=== PATIENT | male | born 1965 | race Hispanic/Latino ===

== ENCOUNTER 2019-03-18 12:53 | Observation (INO) ==
[2019-03-18] MEDS ORDERED: ASPIRIN PO ONE (13:16)
[2019-03-18] MEDS ORDERED: NS 1,000 ML IV ONE (13:23)
--- NOTE | 2019-03-18 13:26 | PROVIDER DOCUMENTATION ---
HPI-Neurological Disorder - General Chief Complaint: Chest Pain Stated Complaint: ELEVATED BP Time Seen by Provider: 03/18/19 13:19 Source: patient Allergies/Adverse Reactions: Patient Allergies Allergy/AdvReac Type Severity Reaction Status Date / Time No Known Allergies Allergy Verified 07/26/18 09:08 Home Medications: Home Medication List Medication Instructions Recorded Confirmed Last Taken Type ATORVAstatin [Lipitor] 20 mg PO DAILY 03/18/19 03/18/19 03/18/19 History Aspirin [Aspirin EC] 81 mg PO DAILY 03/18/19 03/18/19 03/18/19 History Clonidine HCl 0.2 mg PO DAILY 03/18/19 03/18/19 03/18/19 History Hydrochlorothiazide 25 g PO DIRECTED 03/18/19 03/18/19 03/18/19 History Losartan Potassium 100 mg PO DAILY 03/18/19 03/18/19 03/18/19 History Metformin HCl 850 mg PO DAILY 03/18/19 03/18/19 03/18/19 History Sitagliptin Phosphate [Januvia] 100 mg PO DAILY 03/18/19 03/18/19 03/18/19 History - History of Present Illness-Neuro Nature of Presenting Problem: Patient is visiting from [place], history of HTN and CVA with left hemiparesis, notes RIGHT upper and lower extremity weakness, difficulty raising right hand, difficulty walking x 2 days. States right side is also numb/tingling and do esn't feel right. This morning noted left chest pain, described as moderate, 4- 5/10, pressure/tightness, radiating to right neck. Has had similar symptoms in the past with stroke, but it affected left side. He has mild SOB and nausea, but no sweating/vomiting. Headache Location: reports: temporal (left) Severity: reports: mild Onset/Duration: reports: 2 days ago Timing: reports: still present, improving (a little better), constant Character of Altered Mental Status: reports: N/A Gait Baseline: walks without assistance Associated Symptoms: reports: headache, chest pain (this morning, left sided), nausea, other (short of breath) Similar Symptoms Previously?: No Recently seen or treated by another doctor?: No (visiting from [place]) Review of Systems - Adult - REVIEW OF SYSTEMS - ADULT Constitutional: reports: no symptoms reported Eyes: reports: no symptoms reported Ears, Nose, Mouth & Throat: reports: no symptoms reported Cardiovascular: reports: chest pain (this am, pressure/tightness, assoc with nausea, SOB and radiates to back of neck) Respiratory: reports: see HPI, shortness of breath (this am) Gastrointestinal: reports: no symptoms reported Genitourinary: reports: no symptoms reported Musculoskeletal: reports: no symptoms reported Integumentary: reports: no symptoms reported Neurological: reports: see HPI Psychiatric: reports: no symptoms reported Endocrine: reports: excessive sweating Hematologic/Lymphatic: reports: no symptoms reported Allergic/Immunologic: reports: no symptoms reported All Other Systems: Reviewed and Negative Past History - Adult - PAST MEDICAL HISTORY-ADULT Review of Records: reports: Old Records Reviewed, Nursing Assessment Review, Medications Reviewed, Social history reviewed & non-contributory. Major Childhood Illnesses: reports: denies history Cardiovascular: reports: HTN, [place] Respiratory: reports: denies history Gastrointestinal: reports: denies history Obstetrical/Gynecological: reports: denies history Genitourinary: reports: denies history Musculoskeletal: reports: denies history Neurological: reports: CVA, stroke deficits (mild left sided weakness) Psychiatric: reports: denies history Endocrine/Immune: reports: denies history Other Conditions: reports: denies history - PRIOR SURGERIES/PROCEDURES Surgical/Procedure History: reports: reviewed, not pertinent, appendectomy - IMMUNIZATION STATUS Childhood Immunizations: See Nurse Assessment Flu Vaccine: See Nurse Assessment - FAMILY HISTORY Family History: reviewed, not pertinent - SOCIAL HISTORY Smoking: non-smoker Substance Use: none/never Alcohol Use Frequency: rarely Living Situation: family (in [place]) Physical Exam- Neurological - Physical Exam-Neuro Initial Vital Signs Reviewed: Yes (hypertensvie, bradycardic) General Appearance: appears well, alert, no apparent distress Eye Exam: bilateral eye: normal inspection, PERRL, EOMI HENMT: normocephalic/atraumatic, moist mucous membranes, normal ENT inspection, TMs normal, pharynx normal Head Injury: no evidence of injury, active bleeding Neck: non-tender, full range of motion, supple, normal inspection Respiratory: chest non-tender, lungs clear, normal breath sounds, no pleuratic chest pain, no respiratory distress, no accessory muscle use Cardiovascular: normal peripheral pulses, regular rate, rhythm, no edema, no gallop, no JVD, no murmur, bradycardia Abdominal Exam: normal bowel sounds, non tender, soft, no organomegaly, no pulsatile mass Lymphatic: no adenopathy Peripheral Pulses: radial (R): 2+, radial (L): 2+, dorsalis-pedis (R): 2+, dorsalis-pedis (L): 2+ Extremity: normal range of motion, non-tender, normal gait, normal inspection, no pedal edema, no calf tenderness, normal capillary refill process treater Exam: normal hearing, normal speech, PERRL Coordination/Gait: normal finger to nose, normal gait, negative Romberg's sign Motor/Sensory: no pronator drift, negative Babinski's sign, sensory deficit (slight decreased sensation right UE/RL), weak motor strength RUE, weak motor strength RLE Neurologic: process treater II-XII nml as tested, grossly normal, motor weakness (right sided), negative romberg's sign. negative: abnormal process treater II-XII, abnormal gait Integumentary: normal color, normal turgor Psych/Mental Status: normal mood/affect, normal thought content, normal thought process, oriented x 3 - Glascow Coma Scale Best Eye Response: (4) open spontaneously Best Verbal Response: (5) oriented Best Motor Response: (6) obeys commands Total Glascow Score: 15 Progress - PLAN OF CARE/RESULTS Progress/Plan/Lab Results: Vital Signs - 8 hr 03/18/19 13:08 03/18/19 16:05 Temperature 98.6 F Pulse Rate 58 L 50 L Respiratory Rate 18 18 Blood Pressure 176/101 159/98 O2 Sat by Pulse Oximetry 97 99 Laboratory Results - last 24 hr 03/18/19 03/18/19 03/18/19 13:24 13:24 13:24 WBC 7.57 RBC 4.79 Hgb 13.3 L Hct 39.6 L MCV 82.7 MCH 27.8 MCHC 33.6 RDW Std Deviation 13.7 Plt Count 194 MPV 12.3 H Immature Gran % (Auto) 0.1 Neut % (Auto) 69.1 Lymph % (Auto) 22.7 Nuckolls % (Auto) 7.5 Eos % (Auto) 0.5 Baso % (Auto) 0.1 Immature Gran # (Auto) 0.01 Neut # (Auto) 5.22 Lymph # (Auto) 1.72 Nuckolls # (Auto) 0.57 Eos # (Auto) 0.04 Baso # (Auto) 0.01 PT INR PTT (Actin FS) Sodium 141 Potassium 3.9 Chloride 103 Carbon Dioxide 29 Anion Gap 10 BUN 11 Creatinine 0.9 Estimated GFR/1.73 m2 > 60 BUN/Creatinine Ratio 12 Glucose 118 H Calculated Osmolality 282 Calcium 8.6 L Total Bilirubin 0.30 AST 12 ALT 11 Alkaline Phosphatase 58 Creatine Kinase 171 Troponin T [id number]-Huxdeoxgbgx Pept 107 Total Protein 7.1 Albumin 4.5 Globulin 3.0 Albumin/Globulin Ratio 2.0 03/18/19 03/18/19 13:24 13:24 WBC RBC Hgb Hct MCV MCH MCHC RDW Std Deviation Plt Count MPV Immature Gran % (Auto) Neut % (Auto) Lymph % (Auto) [place]uckolls % (Auto) Eos % (Auto) Baso % (Auto) Immature Gran # (Auto) Neut # (Auto) Lymph # (Auto) Nuckolls # (Auto) Eos # (Auto) Baso # (Auto) PT 13.2 INR 0.95 PTT (Actin FS) 31.1 Sodium Potassium Chloride Carbon Dioxide Anion Gap BUN Creatinine Estimated GFR/1.73 m2 BUN/Creatinine Ratio Glucose Calculated Osmolality Calcium Total Bilirubin AST ALT Alkaline Phosphatase Creatine Kinase Troponin T < 0.010 Tat-U-Itbuggqoybj Pept Total Protein Albumin Globulin Albumin/Globulin Ratio Orders Category Date Time Status Cardiac Monitoring DIRECTED Care 03/18/19 13:16 Active Nursing- Obtain EKG once Care 03/18/19 15:29 Active Oxygen Therapy- ED Nursing DIRECTED Care 03/18/19 13:16 Active Saline Loc NOW Care 03/18/19 13:16 Active CHEST-2 VIEWS [RAD] Stat Exams 03/18/19 13:[address] HEAD W/O CONTRAST [CT] Stat Exams 03/18/19 13:23 Completed CBC WITH ELECTRONIC DIFF [HEME] Stat Lab 03/18/19 13:24 Completed CK PROFILE [SP CHEM] Stat Lab 03/18/19 13:24 Completed COMPREHENSIVE METABOLIC PANEL [CHEM] Stat Lab 03/18/19 13:24 Completed PRO B-NATRIURETIC PEPTIDE Stat Lab 03/18/19 13:24 Completed PROTIME WITH INR [COAG] Stat Lab 03/18/19 13:24 Completed PTT [COAG] Stat Lab 03/18/19 13:24 Completed TROPONIN T Stat Lab 03/18/19 13:24 Completed TROPONIN T Stat Lab 03/18/19 15:47 Received 0.9% Sodium Chloride Inj [Ns] 1,000 ml Med 03/18/19 13:23 Discontinued IV 999 mls/hr Aspirin Med 03/18/19 13:16 Discontinued 325 mg PO NOW ONE CP/SOB/Palp >45 yrs of Age Stat Oth 03/18/19 13:16 Ordered EKG [EKG] Stat Ther 03/18/19 13:16 Draft EKG [EKG] Stat Ther 03/18/19 15:29 Draft Result Diagrams: 03/18/19 13:24 03/18/19 13:24 - REASSESSMENT Reassessment #1 Time Reassessed: 16:13 Status: improving (given ASA, NTP, IVF) - CONSULTS/PCP/HOSPITALIST Notification #1 *Consult/PCP/Hospitalist*: [place] Time Discussed: 16:14 Consult Disposition: Will see in ED, Admit Departure - Departure Date of Disposition Decision: 03/18/19 Time of Disposition Decision: 16:14 DIAGNOSIS: TIA (transient ischemic attack), Chest pain, moderate coronary artery risk Disposition: ADMITTED INPATIENT 09 Certified Medical Emergency: Emergent Condition: Stable Referrals and Follow-Ups: None,PCP [Primary Care Provider] - - Critical Care Note This patient required my direct & personal management of CC.: No Attestation - Physician/ MARISA Attestation Patient care was provided by Advanced Practice Provider:: No The physician spent face to face time with patient:: Yes Advanced Practice Provider documentation review:: Supervising physician onsite and consulted in the evaluation and care of this patient. The physician did have a face to face encounter with the patient. - NIH Stroke Scale NIH Type: Initial Evaluation Level of Consciousness: 0-Alert LOC Questions (ask month and age): 0-Answers Both Correctly LOC Commands (ask to open & close eyes;make a fist, let go): 0-Obeys Both Correctly Best Gaze (horizontal eye movement): 0-Normal Visual (use finger movement, counting or visual threat): 0-No Visual Loss Facial Palsy (show teeth or raise eyebrows & close eyes tght: 0-Symmetrical Movement Motor Function-left arm: 0-Normal Motor Function-right arm: 1-Drift Motor Function-left le-Normal Motor Function-right le-Drift Limb Ataxia(qzqsyp-ngou-cspyse, or heel to soto): 0-No Ataxia Sensory(pin prick to face,arms,trunk,legs-compare side/side): 1-Mild to Moderate Decrease in Sensation Best Language(name item/read sentence.Ex-Down to Earth): 0-No Aphasia Dysarthria(Pt read words or say words Ex.Mama,Tip-Top,Thanks: 0-Normal Articulation Extinction and Inattention: 0-Normal NIH Total Score: 2 Modified Sanju[place]ita Score Criteria: 1-no significant disability despite symptoms Stroke tPA Guidelines - Inclusion Criteria for IV tPA 18 years old or older: Yes Ischemic stroke with measurable deficit: Yes Onset <3 hours ago *OR* 3-4.5 hours ago: No - Exclusion Criteria for IV tPA Evidence of intracranial hemorrhage on CT: No Presentation suggest SAH: No CT reveals defined area of hypodensity: No Evidence of AVM, neoplasm, aneurysm: No Seizure at stroke onset: No Active internal bleeding or acute trauma: No Platelet Count Less Than 100,000: No Heparin Within Last 48 HRS (PTT >Lab normal limits): No INR > 1.7 (warfarin use): No Use IIB/IIIA inhibitors within 24 hours: No Serious Head Trauma Within Last 3 Months: No Arterial Puncture Within Last 7 Days: No Lumbar Puncture Within Last 7 Days: No Repeated systolic Blood Pressure >185 or Diastolic >110: No - Additional Exclusion Criteria for IV tPA Currently on Coumadin: No Patient older than 80: No Prior stroke and diabetes: No Baseline NIHSS score > 25: No - Relative Contraindications to IV tPA CT reveals extensive area of infarct (>1/3 MCA territory): No Minor or rapidly improving stroke symptoms: No Major Surgery or Serious Trauma In Previous 14 Days: No AMI within 3 months: No Gastrointestinal or Urinary Tract hemorrhage in Past 21 Days: No Post - AMI pericarditis: No Blood Glucose Less Than 50 mg/dl or Greater Than 400 mg/dl: No - Consultation tPA risks/benefits explained to:: patient Candidate for:: NOT A CANDIDATE (symptoms began 2-3 days ago, seem a little improved) - HEART Score HEART Score: History: Moderately Suspicious HEART Score: ECG: Non-Specific Repolarization Disturbance/LBBB/PM HEART Score: Age: 45-65 Years HEART Score: Risk Factors for Atherosclerotic Disease: > or = 3 Risk Factors or History of Atherosclerotic Disease HEART Score: Troponin: < or = Normal Limit Total HEART Score:: 5
--- NOTE | 2019-03-18 13:29 | EKG Report ---
Test Performed on : 03/18/2019 1:17:59 PM Test Reason : CHEST PAIN Blood Pressure : / mmHG Vent. Rate : 051 BPM Atrial Rate : 051 BPM P-R Int : 178 ms QRS Dur : 100 ms QT Int : 434 ms P-R-T Axes : 000 065 052 degrees QTc Int : 400 ms Sinus bradycardia. Otherwise normal ECG When compared with ECG of 26-JUL-2018 09:15, Vent. rate has decreased BY 34 BPM Questionable change in QRS axis QT has shortened Unconfirmed Result
--- NOTE | 2019-03-18 13:39 | ED EKG INTERP ---
This chart was entered by Annbaella Zhang Scribe, acting as scribe for Kevin Chowdhury MD. EKG Interpretation - EKG Time of EKG reading by physician:: 13:17 EKG Read and Signed by:: Kevin Chowdhury EKG Interpretation (*Must complete 3 of following elements*): Abnormal Rate: 51 Rhythm: sinus bradycardia Friend[place]: normal AR Interval: normal Comments: otherwise normal ECG Attestation - Physician/ MARISA Attestation The physician spent face to face time with patient:: Yes Advanced Practice Provider documentation review:: Supervising physician onsite and consulted in the evaluation and care of this patient. The physician did have a face to face encounter with the patient. This chart was documented by the indicated scribe, (Annabella Zhang Scribe) and accurately reflects the services I performed and decisions made by Trenton nicolas Kent A., MD, as attested by the provider's signature.
--- NOTE | 2019-03-18 13:39 | Diag Imaging Result Doc PS360 ---
CHEST-2 VIEWS - 03/18/2019 INDICATION: CHEST PAIN COMPARISON: 07/26/2018 FINDINGS: The lungs are normally expanded and clear. Heart size and mediastinal contours are normal. No pneumothorax or pleural effusion. IMPRESSION: Negative exam. Electronically signed by Gama Whelan 03/18/2019 1:37 PM
[2019-03-18 13:42] LABS: BASO# 0.01 X1000 (0.0-0.2); BASO% 0.1 % (0.0-0.8); EOS# 0.04 X1000 (0.0-0.7); EOS% 0.5 % (0.0-10.0); HEMATOCRIT 39.6 % (42.0-52.0); HEMOGLOBIN 13.3 g/dL (14.0-18.0); IMM GRAN# 0.01 X1000 (0.0-0.04); IMM GRAN% 0.1 % (0.0-0.5); LYMPH# 1.72 X1000 (1.2-3.4); LYMPH% 22.7 % (20.5-51.1); MCH 27.8 PG (27-31); MCHC 33.6 g/dL (33-37); MCV 82.7 FL (81-99); MONO# 0.57 X1000 (0.11-0.59); MONO% 7.5 % (1.7-9.3); MPV 12.3 FL (7.4-10.4); NEUT# 5.22 X1000 (1.4-6.5); NEUT% 69.1 % (42.2-75.2); PLT 194 X1000 (130-400); RBC 4.79 XMIL (4.7-6.1); RDW 13.7 % (11.5-14.5); WBC 7.57 X1000 (4.8-10.8)
[2019-03-18 13:55] LABS: INR 0.95; PROTIME 13.2 Seconds (11.0-16.0)
[2019-03-18 13:56] LABS: PTT 31.1 Seconds (22.3-41.8)
[2019-03-18 14:07] LABS: AGAP 10; ALBUMIN 4.5 g/dL (3.5-5.0); ALKALINE PHOSPHATASE 58 U/L (32-122); BUN 11 mg/dL (8-22); CALCIUM 8.6 mg/dL (8.8-10.2); CHLORIDE 103 mmol/L (98-107); CK PROFILE 171 U/L (24-204); COSMO 282; CREATININE 0.9 mg/dL (0.7-1.2); ESTIMATED GFR > 60; GLUCOSE 118 mg/dL (70-104); GOT 12 U/L (10-34); GPT 11 U/L (10-44); POTASSIUM 3.9 mmol/L (3.5-5.1); SODIUM 141 mmol/L (136-145); TCO2 29 mmol/L (25-35); TOTAL PROTEIN 7.1 g/dL (6.3-8.3)
--- NOTE | 2019-03-18 14:26 | Diag Imaging Result Doc PS360 ---
CT HEAD W/O CONTRAST - 03/18/2019 INDICATION: right sided weakness, r/o CVA COMPARISON: None FINDINGS: The ventricles and sulci are normal in size and contour. No intracranial mass or hemorrhage. The skull is intact. The sinuses mastoids and middle ears are clear. IMPRESSION: Negative exam. This exam was performed using automated exposure control, adjustment of mA or kV according to patient size, and/or use of iterative reconstruction technique Electronically signed by Gama Whelan 03/18/2019 2:23 PM
--- NOTE | 2019-03-18 15:57 | ED EKG INTERP ---
This chart was entered by Annabella Zhang Scribe, acting as scribe for Kevin Chowdhury MD. EKG Interpretation - EKG Time of EKG reading by physician:: 15:50 EKG Read and Signed by:: Kevin Chowdhury EKG Interpretation (*Must complete 3 of following elements*): Abnormal Rate: 45 Rhythm: sinus bradycardia [place]: normal NH Interval: normal Comments: otherwise normal ECG Attestation - Physician/ MARISA Attestation Patient care was provided by Advanced Practice Provider:: No The physician spent face to face time with patient:: Yes Advanced Practice Provider documentation review:: Supervising physician onsite and consulted in the evaluation and care of this patient. The physician did have a face to face encounter with the patient. This chart was documented by the indicated scribe, (Annabella Zhang Scribe) and accurately reflects the services I performed and decisions made by Trenton nicolas Kent A., MD, as attested by the provider's signature.
--- NOTE | 2019-03-18 16:03 | EKG Report ---
Test Performed on : 03/18/2019 3:50:25 PM Test Reason : repeat for chest pain Blood Pressure : / mmHG Vent. Rate : 045 BPM Atrial Rate : 045 BPM P-R Int : 178 ms QRS Dur : 098 ms QT Int : 442 ms P-R-T Axes : -12 068 047 degrees QTc Int : 382 ms Sinus bradycardia. Otherwise normal ECG When compared with ECG of 18-MAR-2019 13:17, (Unconfirmed) No significant change was found Unconfirmed Result
[2019-03-18] MEDS ORDERED: NITROGLYCERIN TOP ONE (16:15)
[2019-03-18] MEDS ORDERED: APRESOLINE IV PRN (18:08)
[2019-03-18] MEDS ORDERED: ZOFRAN IV PRN (18:08)
[2019-03-18] MEDS: TYLENOL PO PRN ×2 (18:46→21:05)
[2019-03-18] MEDS: LIPITOR PO SCH (21:04)
--- NOTE | 2019-03-18 21:27 | HISTORY AND PHYSICAL ---
PRIMARY CARE PHYSICIAN: In [place], [place]. CHIEF COMPLAINT: Right upper and lower extremity weakness, difficulty raising his right hand, difficulty walking for the past 2 days with numbness and tingling to right upper and lower extremity. Also noted left chest pain with pressure and tightness that radiated to the left side of his neck with associated nausea and shortness of breath. HISTORY OF PRESENTING ILLNESS: This is a 53-year-old male who presents to [facility] ER with complaints of right upper and lower extremity weakness, difficulty raising his right arm, difficulty walking over the past 2 days with some associated numbness and tingling to the right side. Also states he has had left-sided chest pain with pressure and tightness that radiated to the left neck with associated nausea and shortness of breath. The patient is noted to be here from [place], [place] visiting family. He has had a history of CVA in the past with left hemiparesis. His workup in the emergency room showed a blood pressure of 176/[address] of the head was negative. He is noted to have right-sided weakness to upper and lower extremities states chest pain feels like pressure and tightness and radiates to the left side of his neck so he will be admitted for further evaluation and treatment. PAST MEDICAL HISTORY: Of hypertension, CVA with left hemiparesis, [place], diabetes type 2. PAST SURGICAL HISTORY: Appendectomy. FAMILY HISTORY: Reviewed and noncontributory. SOCIAL HISTORY: Currently lives with his family in [place]. Denies any tobacco, alcohol or illicit drug use. ALLERGIES: He has no known drug allergies. HOME MEDICATIONS: He takes aspirin 81 mg p.o. daily, atorvastatin 20 mg p.o. daily, clonidine 0.2 mg p.o. daily, hydrochlorothiazide 25 mg p.o. daily, losartan 100 mg p.o. daily and metformin 850 mg p.o. daily. LABORATORY DATA: Showed a white blood cell count of 7.57, hemoglobin 13.3, hematocrit 39.6, platelets 194,000. PT and INR of 13.2 and 0.95. Sodium 141, potassium 3.9, chloride 103, CO2 29, BUN of 11, creatinine 0.9, glucose 118. Cardiac enzyme was negative, proBNP of 107. Chest x-ray showed a negative exam. Head CT was negative. EKG showed sinus bradycardia at 51. REVIEW OF SYSTEMS: He denied any fever, chills, blurred vision, dizziness. He was positive for chest pain, shortness of breath, nausea, right upper and lower extremity weakness with numbness and tingling. Denied any abdominal pain, constipation, diarrhea, burning or hurting with urination. PHYSICAL EXAMINATION: On arrival he had a temperature of 98.6 degrees, pulse 58, respirations 18, blood pressure 176/101, saturating 97% on room air. GENERAL: This is a 53-year-old male who is lying in the bed and answers questions appropriately. HEENT: Normocephalic, atraumatic. Normal ENT inspection. Oropharynx and nares are clear. Pupils are equal, round, reactive to light, accommodation. Extraocular movements are intact. NECK: Normal inspection, normal range of motion. LUNGS: Clear to auscultation bilaterally with equal lung expansion and chest wall movement. HEART: With regular rate and rhythm. No murmurs, rubs, or gallops. ABDOMEN: Soft, nontender, nondistended. Bowel sounds are present x4 quadrants. MUSCULOSKELETAL: He had 5/5 strength to left upper and lower extremities, 3/5 strength to right upper and lower extremities. NEUROLOGICAL: The patient was noted to have weakness to hand grasp on the right, difficulty raising his right leg. Otherwise neurological exam was within normal limits. ASSESSMENT: 1. Transient ischemic attack versus cerebrovascular accident. 2. Chest pain. 3. Hypertension. 4. Diabetes type 2 . PLAN: Will admit him to the medical unit. Place on telemetry. We will do serial cardiac enzymes. Check an echocardiogram, carotid ultrasound. We will do an MRI of the brain with and without contrast in the a.m., place on a diabetic diet. We will check a lipid profile, do serial cardiac enzyme. Continue home medications as previously identified. We are going to allow for some permissive hypertension but we will try to keep his systolic less than 190 and diastolic less than 100. I am going to give him some hydralazine 10 mg IV q.4 hours p.r.n. for those parameters and further orders after seen by attending. Dictated by CAROL Barkley for Malvin Antonio MD cc: CAROL Barkley MD
[2019-03-19 03:01] LABS: BASO# 0.01 X1000 (0.0-0.2); BASO% 0.1 % (0.0-0.8); EOS# 0.07 X1000 (0.0-0.7); EOS% 0.9 % (0.0-10.0); HEMATOCRIT 37.3 % (42.0-52.0); HEMOGLOBIN 12.3 g/dL (14.0-18.0); IMM GRAN# 0.01 X1000 (0.0-0.04); IMM GRAN% 0.1 % (0.0-0.5); LYMPH# 2.61 X1000 (1.2-3.4); LYMPH% 33.2 % (20.5-51.1); MCH 27.3 PG (27-31); MCV 82.9 FL (81-99); MONO# 0.58 X1000 (0.11-0.59); MONO% 7.4 % (1.7-9.3); MPV 12.2 FL (7.4-10.4); NEUT# 4.59 X1000 (1.4-6.5); NEUT% 58.3 % (42.2-75.2); PLT 187 X1000 (130-400); RDW 13.9 % (11.5-14.5); WBC 7.87 X1000 (4.8-10.8)
[2019-03-19 03:26] LABS: AGAP 11; BUN 11 mg/dL (8-22); CALCIUM 8.1 mg/dL (8.8-10.2); CHLORIDE 105 mmol/L (98-107); COSMO 284; CREATININE 0.7 mg/dL (0.7-1.2); ESTIMATED GFR > 60; GLUCOSE 121 mg/dL (70-104); POTASSIUM 3.3 mmol/L (3.5-5.1); SODIUM 142 mmol/L (136-145); TCO2 26 mmol/L (25-35)
--- NOTE | 2019-03-19 06:54 | HISTORY AND PHYSICAL ---
ADDENDUM: Patient presented to the hospital with elevated blood pressures and chest pain as well as left-sided weakness by history from an old CVA. Now he is having right-sided weakness. We are going to admit him and evaluate for CVA and attempt to control his blood pressures a little bit better than he has been doing at home. Further orders as needed. cc: Malvin Antonio MD
[2019-03-19] MEDS ORDERED: GLUCOPHAGE PO SCH (08:00)
[2019-03-19] MEDS ORDERED: JANUVIA PO SCH (09:00)
[2019-03-19] MEDS ORDERED: ASPIRIN EC PO SCH (09:00)
[2019-03-19] MEDS ORDERED: CATAPRES PO SCH (09:00)
[2019-03-19] MEDS ORDERED: COZAAR PO SCH (09:00)
[2019-03-19] MEDS ORDERED: HYDROCHLOROTHIAZIDE PO SCH (09:00)
--- NOTE | 2019-03-19 14:31 | Extremity Venous Study ---
EXAM: Carotid Ultrasound - 03/19/2019 HISTORY: TIA vs CVA TECHNIQUE: Carotid flow studies COMPARISON: None. FINDINGS: There is no substantial atherosclerotic plaquing identified in the right carotid system. Maximum systolic velocity right internal carotid is 102 cm/s, and maximum diastolic velocity is 34 cm/s. The right internal to common carotid systolic velocity ratio is 1.28. The flow velocities and ratio are consistent with 0-39% stenosis at the right internal carotid. The right vertebral demonstrates antegrade flow. There is no substantial atherosclerotic plaque identified in the left carotid system. Maximum systolic velocity in the left internal carotid is 85 cm/s, maximum diastolic velocity is 37 cm/s. The left internal to common carotid systolic velocity ratio is 0.93. The flow velocities and ratio are consistent with 0-39% stenosis at the left internal carotid. The left vertebral demonstrates antegrade flow. IMPRESSION: 0-39% stenosis at right internal carotid. 0-39% stenosis at left internal carotid. Electronically signed by Kaushik Albarado 03/19/2019 2:29 PM
[2019-03-19] MEDS ORDERED: ATIVAN IV ONE (15:13)
[2019-03-19] MEDS ORDERED: ATIVAN ONE (15:19)
--- NOTE | 2019-03-19 16:47 | ECHO REPORT ---
ORDER DATE: 03/19/2019 INTERPRETING PHYSICIAN: Dr. Ricardo Gutierrez ECHOCARDIOGRAPHIC MEASUREMENTS: 1. Interventricular septum: 0.9 cm. 2. Posterior wall: 1.1 cm. 3. Diastolic diameter: 4.4 cm. 4. Left atrium: 3.7 cm. 5. Aorta: 2.3 cm. SUMMARY OF THE 2-DIMENSIONAL IMAGIN. Aortic valve leaflets are trileaflet. 2. Pulmonic valve was normal. 3. Mitral valve was normal. 4. Tricuspid valve was normal. 5. There is mild mitral regurgitation. 6. Mild tricuspid regurgitation. 7. Peak velocity across the tricuspid valve was less than 2 meters per second. 8. Peak velocity across the aortic valve less than 2 meters per second. 9. By Doppler studies, there is no aortic stenosis or regurgitation. 10. Normal left ventricular cavity size. 11. Estimated ejection fraction of 65%. 12. There is no pericardial effusion or obvious intracardiac mass or thrombus seen. cc: MD Aaliyah Bhatia CRNP
--- NOTE | 2019-03-19 17:00 | Diag Imaging Result Doc PS360 ---
EXAM: MRI BRAIN W/WO CONTRAST - 03/19/2019 HISTORY: tia TECHNIQUE: MRI brain without and with contrast. Images are obtained prior to and following gadolinium administration. COMPARISON: 03/18/2019 CT head without contrast FINDINGS: There is no evidence of intracranial hemorrhage, mass effect, midline shift, or hydrocephalus. There are no substantial signal abnormalities identified. The diffusion weighted images show no areas of restricted diffusion (no evidence of acute infarct). There is no abnormal enhancement identified. There is mild cerebellar tonsillar ectopia noted consistent with range of normal variation. IMPRESSION: No visible significant intracranial abnormality. No evidence of acute infarct. Electronically signed by Kaushik Albarado 03/19/2019 4:58 PM
[2019-03-19] MEDS ORDERED: KLOR-CON PO ONE (17:40)
[2019-03-19] MEDS ORDERED: TORADOL IV ONE (19:25)
[2019-03-19] MEDS ORDERED: SOLU-MEDROL IV ONE (19:26)
[2019-03-19 20:05] VITALS: BP 220/105
--- NOTE | 2019-03-19 20:07 | Diag Imaging Result Doc PS360 ---
EXAM: SHOULDER-RIGHT - 03/19/2019 HISTORY: right arm TECHNIQUE: Right shoulder two views COMPARISON: None. FINDINGS: There are apparent degenerative changes. There is a thin sclerotic line over the humeral neck which is likely long-standing. There is no fracture or dislocation identified. There are no erosive or destructive changes identified. IMPRESSION: Apparent degenerative changes. No other discrete abnormality. Electronically signed by Kaushik Albarado 03/19/2019 8:05 PM
[2019-03-19] MEDS: LIPITOR PO SCH (20:09)
--- NOTE | 2019-03-20 07:17 | DISCHARGE SUMMARY ---
ADMISSION DATE: 03/18/2019 DISCHARGE DATE: 03/19/2019 HISTORY: The patient came in with some atypical features and facial numbness. Now, he had focal pain and paresthesia in his right upper arm. Apparently, he had been painting a lot and helping his friend paint and doing overhead painting. Apparently, he had a history of CVA so I think that is what kind of got him scared, but pain is very reproducible from the shoulder. He has paresthesias in his 2 front fingers. There is no weakness per se. Workup which was extensive was negative. Echo, carotid and MRI. The patient is doing well. I gave him a dose of Solu-Medrol and Toradol, and we will give him a prescription for Lodine at home and a Medrol Dosepak. cc: Gopal De Leon MD
--- NOTE | 2019-03-20 12:44 | DISCHARGE SUMMARY ---
ADMISSION DATE: 03/18/2019 DISCHARGE DATE: 03/19/2019 PRIMARY CARE PHYSICIAN: In [place], [place]. ADMISSION DIAGNOSES: 1. Transient ischemic attack versus cerebrovascular accident. 2. Chest pain. 3. Hypertension. 4. Diabetes type 2. DISCHARGE DIAGNOSES: 1. Focal pain and paresthesia in his right upper arm was ruled out for CVA. 2. Chest pain, resolved. 3. Hypertension. 4. Diabetes type 2. SUMMARY OF FINDINGS: This is a 53-year-old male who presented to the emergency room with complaints of right upper and lower extremity weakness, difficulty raising his right arm, difficulty walking over the past 2 days with associated numbness and tingling on the right side. He also stated he had left-sided chest pain with pressure and tightness that radiated to the left side of his neck with nausea and shortness of breath. He is noted to be here from [place], [place], visiting with family. 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 He was admitted. We did a echocardiogram that showed an ejection fraction of 65%. We did a head CT that was negative. We did a brain MRI that showed no visible sign of intracranial abnormality. No evidence of an acute infarct. We did a right shoulder x-ray that showed apparent degenerative changes, but no other discrete abnormality. After talking with our attending, the patient admitted to have been painting with his arm above his head for several hours while at family's house and it was felt that he probably had hyperextended his shoulder. The pain was very reproducible in that shoulder, so it was felt that he could safely be discharged home. DISCHARGE MEDICATIONS: Included etodolac 300 mg p.o. b.i.d. and a Medrol Dosepak to take as directed. Continue his other home medications from previous. FOLLOW UP: With his primary care physician once he returns home to [place]. TIME SPENT WITH PATIENT: This is a 35 minute discharge. Dictated by CAROL Barkley for Gopal De Leon MD cc: CAROL Barkley MD
== END 2019-03-19 20:35 | disposition home or self-care (01) ==
LOC: P.MEDSURG 12:53 → P.ED 12:53 → SUATTDRO 17:49
PROVIDERS: ATTEND Internal Medicine